=== PATIENT | female | born 1975 | race Caucasian/White ===

== ENCOUNTER 2023-10-24 08:08 | Emergency (ER) | payer OTHER, SELFPAY ==
[2023-10-24 08:13] VITALS: BP 155/89
[2023-10-24 08:35] VITALS: BMI 53.3
[2023-10-24 08:56] LABS: % Basophils 0.7 % (0-2); % Eosinophils 1.2 % (0-6); % Immature Granulocytes 0.6 % (0-0.5); % Lymphocytes 22.2 % (20.5-51.1); % Neutrophils 69.3 % (42.2-75.2); Absolute Basophils 0.1 10^3/uL (0-0.2); Absolute Eosinophils 0.1 10^3/uL (0-0.7); Absolute Immature Granulocytes 0.1 10^3/uL (0-0.05); Absolute Monocytes 0.5 10^3/uL (0.1-0.6); Absolute Neutrophils 6.3 10^3/uL (1.4-6.5); Hemoglobin 9.9 g/dL (12.0-16.0); Mean Corpuscular Hgb 27.3 pg (27.0-31.0); Mean Corpuscular Volume 82.6 fL (81.0-99.0); Mean Platelet Volume 10.8 fL (7.4-10.4); Nucleated Red Blood Cells % 0 %; Platelet Count 288 10^3/uL (130-400); Red Blood Cell Count 3.63 10^6/uL (4.20-5.40); Red Cell Dist. Width 17.6 % (11.5-14.5)
[2023-10-24 09:07] LABS: ALT (SGPT) 15 U/L (0-35); AST (SGOT) 15 U/L (14-36); Albumin 3.7 g/dl (3.5-5.0); Alkaline Phosphatase 87 U/L (38-126); Blood Urea Nitrogen 9 mg/dl (7-17); Calcium 8.6 mg/dl (8.4-10.2); Carbon Dioxide 25 mmol/L (22-30); Chloride 104 mmol/L (98-107); Estimated Creatinine Clearance > 125 ml/min; Glucose 100 mg/dl (70-99); HCG, Serum Qualitative Screen Negative; Potassium 3.6 mmol/L (3.5-5.1); Sodium 135 mmol/L (135-145); Total Bilirubin 0.3 mg/dl (0.2-1.3); Total Protein 6.4 g/dl (6.3-8.2); eGFR > 60.00
[2023-10-24 09:14] VITALS: BP 126/77
[2023-10-24 10:04] VITALS: BP 115/60
--- NOTE | 2023-10-24 10:08 | ED.GENMED ---
History of Present Illness
General
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
Source: patient and spouse
Time Seen by Provider: 10/24/23 08:26
Travel History
Have you had any contact with someone who has COVID-19?: No
Do you have any symptoms of coronavirus? Fever > 100 degrees, chills, cough, shortness of breath, sore throat, loss of taste or smell, muscle aches, or headache?: No
History of Present Illness
History of Present Illness:
48-year-old female with a hx of clotting disorder and pulmonary embolism who is anticoagulated and presents after she woke up there was blood around her mouth and her arms. She also states that she is on her period has been having heavy bleeding
which she typically does have and is scheduled for hysterectomy in the next 3 weeks. The patient states that she was not sure if it was just from her vaginal bleeding as white blood was on her arms. She then brushed her teeth and noticed some
blood from the gums. She also coughed and noticed some blood as well. She has had no further cough. No fevers. Now feels relatively well otherwise. A little bit of lightheadedness which has come in the past. She had labs to get tomorrow for
pre-op. She is to have her procedure done here at [facility] but has been following a little bit at [facility] as well. she reports large fibroids.
Past History
Past History
ED Past Medical History: Asthma and Other (Prothrombin gene mutation (clotting disorder), uterine fibroids, pulmonary embolism, DVT, obstructive sleep apnea)
Phy Exam
Physical Exam
Physical Exam:
CONSTITUTIONAL Patient alert and oriented to person, place and time. Well-appearing. Vital signs reviewed.
HEAD atraumatic, normocephalic.
EYES eyelids normal to inspection, Extraocular muscles intact, Conjunctiva normal, Sclera normal.
ENT small gingival lesion on the left upper gingiva. She does have some missing teeth bilaterally and in the upper dentition and lower dentition. There is no obvious bleeding from the dental region. No noted epistaxis
NECK normal range of motion, Trachea midline, no jugular venous distention.
RESPIRATORY CHEST No respiratory distress noted, Chest expansion equal, Bilateral breath sounds clear.
CARDIOVASCULAR regular rate and rhythm, Heart sounds normal.
ABDOMEN abdomen nontender, Bowel sounds normal. No distention.
UPPER EXTREMITY range of motion normal, Motor strength normal, no cyanosis, no edema.
LOWER EXTREMITY range of motion normal, Motor strength normal, no cyanosis, no edema.
NEURO Speech normal, No focal motor deficits, [place] coma scale 15, Memory normal, Cranial Nerves intact to screening exam.
SKIN skin warm, dry, and normal in color.
PSYCHIATRIC patient oriented to person place and time, Normal affect.
Course
Orders/Labs/Results
Orders:
Orders
10/24/23 08:36
Test Result ONCE
10/24/23 08:43
Type And Crossmatch Urgent
CMP [Comprehensive Metabolic Panel] Urgent
Complete Blood Count/With Diff Urgent
FSH Urgent
Comment: ADD ON
Ferritin Urgent
Comment: ADD ON
HCG, Serum Qualitative Screen Urgent
Iron Urgent
Comment: ADD ON
TSH Reflex To Free T4 Urgent
Comment: ADD ON
Total Iron Binding Urgent
Comment: ADD ON
10/24/23 09:04
CR Chest - 2 Views Urgent
Comment:
Reason For Exam: hemoptysis
10/24/23 10:14
PTT Urgent
Prothrombin Time Urgent
10/24/23 10:15
Add On- LAB Urgent
Tests Added?: Ca-125, TSH with reflex to T4
Add On- LAB Urgent
Tests Added?: FSH
Add On- LAB Urgent
Tests Added?: Fe, TIBC, Ferritin
Abnormal Lab Results
10/24/23
08:43
RBC 3.63 L 10^6/uL
(4.20-5.40)
Hgb 9.9 L g/dL
(12.0-16.0)
Hct 30.0 L %
(37.0-47.0)
RDW 17.6 H %
(11.5-14.5)
MPV 10.8 H fL
(7.4-10.4)
Abs Immat Gran (auto) 0.1 H 10^3/uL
(0-0.05)
Immature Gran % 0.6 H %
(0-0.5)
Glucose 100 H mg/dl
(70-99)
10/24/23 08:43
10/24/23 08:43
Vital Signs
Initial and Last Documented VS:
Initial Vital Signs
Temp Pulse Resp BP Pulse Ox
97.6 F 93 18 155/89 95
10/24/23 08:13 10/24/23 08:13 10/24/23 08:13 10/24/23 08:13 10/24/23 08:13
Last Documented Vital Signs
Temp Pulse Resp BP Pulse Ox
97.6 F 84 15 115/60 95
10/24/23 08:13 10/24/23 10:04 10/24/23 10:04 10/24/23 10:04 10/24/23 08:13
MDM/Problems Addressed
MDM/Problems Addressed:
Dysfunctional uterine bleeding, gingival bleeding
*Radiology
Radiology exam reviewed: radiology read reviewed and all reviewed NAD by ED Provider
*Pulse Oximetry
Patient hypoxic: no
*Critical Care Note
Total Time (30-74mins, 75-104mins- exclusive of procedures): Not Applicable
Data Reviewed
Source: patient and spouse
Further Testing Considered But Not Given:
Consider pelvic ultrasound the patient history of persistent bleeding and fibroids. Plan for surgery
Patient Management
Escalation/DeEscalation of care consider admission/obs:
In no way suspect that this was hemoptysis as the patient likely would have woken up coughing or short of breath. She has no respiratory symptoms at all. Suspect ENT course. She has no bleeding here in the emergency department. Okay for
discharge and outpatient follow-up with her specialist. Patient does note that she took ibuprofen last night. Did recommend that take ibuprofen with Eliquis
ED Attending Note
-
Portions of this chart may have been created with voice recognition software.� Occasional wrong word or��sound alike� substitutions may have occurred due to the inherent limitations of voice recognition software.
Discharge Plan
Departure
Patient Disposition: Home (Routine Discharge)
Date of Disposition: 10/24/23
Time of Disposition: 10:20
Patient with high blood pressure during this ER visit?: No
Discharge Problem:
Dysfunctional uterine bleeding
Instructions: Heavy Periods (DC)
Prescriptions:
No Action
torsemide 5 mg Tablet
5 mg PO PRN PRN (Reason: edema)
Rx Instructions:
5-10 mg
pantoprazole 40 mg Tablet,Delayed Release (Dr/Ec)
40 mg PO DAILY
diphenhydramine HCl [Benadryl] 25 mg Capsule
25 mg PO HS PRN (Reason: sleep)
Xarelto 20 mg Tablet
20 mg PO QPM
Iron Infusions
1 unit IV PRN PRN (Reason: .as needed)
Referrals:
Jorje Mosqueda MD [Family Provider] -
Activity Restrictions/Additional Instructions:
Please follow-up as planned with your specialist. Return immediately for lightheadedness, passing out episode, shortness of breath, chest pain or any other concerns
Interventions
Interventions:
*Risk Screen - Suicide Last Done: 10/24/23 08:30
*General Assessment Last Done: 10/24/23 08:30
*Neglect/Abuse Screening Last Done: 10/24/23 08:30
ED- Fall Risk Assessment Last Done: 10/24/23 09:12
*ED COVID-19 Vaccine History Last Done: 10/24/23 08:15
ED-Female Genitourinary Assessment Last Done: 10/24/23 08:45
Discharge Date and Time
Print Language: TAJIK
[2023-10-24 10:38] LABS: INR 1.78; PT 20.6 Sec (11.4-14.6)
[2023-10-24 10:39] LABS: APTT 39.3 Sec (23.4-35.0)
[2023-10-24 10:55] LABS: Iron 75 ug/dl (37-170)
[2023-10-24 11:05] LABS: Percent Saturation 26 % (20-50); Total Iron Binding Capacity 279 ug/dl (265-497)
[2023-10-24 11:37] LABS: FSH 8.1 mIU/ml
[2023-10-24 11:51] LABS: TSH Reflex To Free T4 2.69 uIU/ml (0.47-4.68)
[2023-10-24 11:57] LABS: Ferritin 73.2 ng/ml (6.24-137)
[2023-10-24 18:11] LABS: CA 125 101 U/mL (0-35)
== END 2023-10-24 10:55 | disposition home or self-care (01) ==
LOC: EMR 08:08
PROVIDERS: EMERGENCY PHYSICIAN Emergency Medicine; FAMILY PHYSICIAN Family Medicine
DX: N93.8 Other specified abnormal uterine and vaginal bleeding (principal); R42 Dizziness and giddiness; D25.9 Leiomyoma of uterus, unspecified; D68.52 Prothrombin gene mutation; G47.33 Obstructive sleep apnea (adult) (pediatric); J45.909 Unspecified asthma, uncomplicated; Z88.2 Allergy status to sulfonamides
CPT/HCPCS: 99283; 71046; 80053; 82728; 83001; 83540; 83550; 84443; 84703; 85025; 85610; 85730; 86304; 86850; 86900; 86901

== ENCOUNTER 2023-10-28 17:38 | Inpatient (IN) | payer OTHER, SELFPAY ==
[2023-10-28] VITALS (15 sets, daily range): BP systolic 112–146; BP diastolic 56–116; BMI 53.2; BMI 51.2
[2023-10-28 15:39] LABS: % Basophils 0.4 % (0-2); % Eosinophils 1.2 % (0-6); % Immature Granulocytes 0.7 % (0-0.5); % Lymphocytes 18.3 % (20.5-51.1); % Neutrophils 74.4 % (42.2-75.2); Absolute Eosinophils 0.1 10^3/uL (0-0.7); Absolute Immature Granulocytes 0.1 10^3/uL (0-0.05); Absolute Lymphocytes 1.9 10^3/uL (1.2-3.4); Absolute Monocytes 0.5 10^3/uL (0.1-0.6); Absolute Neutrophils 7.7 10^3/uL (1.4-6.5); Hematocrit 28.7 % (37.0-47.0); Hemoglobin 9.1 g/dL (12.0-16.0); Mean Corp Hgb Conc. 31.7 g/dL (33.0-37.0); Mean Corpuscular Hgb 27.9 pg (27.0-31.0); Mean Platelet Volume 10.6 fL (7.4-10.4); Nucleated Red Blood Cells % 0 %; Platelet Count 346 10^3/uL (130-400); Red Blood Cell Count 3.26 10^6/uL (4.20-5.40); Red Cell Dist. Width 18.8 % (11.5-14.5); White Blood Cell Count 10.4 10^3/uL (4.8-10.8)
[2023-10-28] MEDS: ZOFRAN 4 MG IV (15:49)
[2023-10-28] MEDS: MORPHINE SULFATE 4 MG IV (15:49)
[2023-10-28 15:52] LABS: ALT (SGPT) 13 U/L (0-35); AST (SGOT) 17 U/L (14-36); Albumin 3.9 g/dl (3.5-5.0); Alkaline Phosphatase 94 U/L (38-126); Blood Urea Nitrogen 10 mg/dl (7-17); Calcium 8.8 mg/dl (8.4-10.2); Carbon Dioxide 24 mmol/L (22-30); Chloride 104 mmol/L (98-107); Estimated Creatinine Clearance > 125 ml/min; Glucose 111 mg/dl (70-99); Sodium 138 mmol/L (135-145); Total Bilirubin 0.4 mg/dl (0.2-1.3); Total Protein 6.7 g/dl (6.3-8.2); eGFR > 60.00
[2023-10-28 15:54] LABS: INR 1.23; PT 15.3 Sec (11.4-14.6)
[2023-10-28 15:55] LABS: APTT 33.2 Sec (23.4-35.0)
[2023-10-28] MEDS: NSS 1000 IV (15:55)
--- NOTE | 2023-10-28 16:27 | ED.GENMED ---
History of Present Illness
General
Chief Complaint: Vaginal Bleeding
Source: patient, records and spouse
Exam Limitations: none
Time Seen by Provider: 10/28/23 15:33
Nursing documentation reviewed up to this point in time: agreed with
Travel History
Have you had any contact with someone who has COVID-19?: No
Do you have any symptoms of coronavirus? Fever > 100 degrees, chills, cough, shortness of breath, sore throat, loss of taste or smell, muscle aches, or headache?: No
History of Present Illness
History of Present Illness:
48-year-old female presents emergency room complaining of pelvic pain and vaginal bleeding. She was here Friday for the same. She has a hysterectomy scheduled for early November. She takes Xarelto for a prothrombin gene. She is scheduled with
[facility].
Past History
Past History
ED Past Medical History: Asthma and Other (Prothrombin gene mutation (clotting disorder), uterine fibroids, pulmonary embolism, DVT, obstructive sleep apnea)
ED Past Surgical History: Other (wisdom teeth, cataracts)
Social History
Tobacco: Non-smoker
Alcohol: None
Drug: None
Personal:
Review of Systems
Review of Systems
Allergies reviewed?: Yes
All Other Systems: Not applicable
Constitutional: Reports no symptoms
EENT: Reports no symptoms
Respiratory: Reports no symptoms
Cardiac: Reports no symptoms
ABD/GI: Reports no symptoms
: Reports bleeding
Musculoskeletal: Reports no symptoms
Skin: Reports no symptoms
Neurological: Reports no symptoms
Endocrine: Reports no symptoms
Hematologic/Lymphatic: Reports no symptoms
Psychiatric: Reports no symptoms
Phy Exam
Physical Exam
Physical Exam:
Physical Exam
General: appears uncomfortable
Neck: supple. no meningeal signs. normal posterior pharynx
Heart: s1/s2 regular rate and rhythm, no murmur. equal radial
pulses.
HEENT: Pupils equal round reactive to light, EOMI
Lungs: no acute respiratory distress. clear bilaterally
Abdomen: normal bowel sounds. not tender. no CVAT
Neuro: alert and oriented. no focal neurological deficits cranial nerves II through XII intact
Skin: no rash
Psychiatric: well kept. interactive and cooperative
Extremities: no edema. no calf tenderness. negative homans. good distal pulses
Genitourinary Exam Female
Exam Female: adnexal tenderness (left)
Vaginal Exam: blood
Vaginal Bleeding: clots and moderate
Visual exam of cervix: os closed
Uterus: normal size
Course
Orders/Labs/Results
Orders:
Orders
10/28/23 Dinner
Regular
At Your Request: Full Participation
10/28/23 15:26
Type And Crossmatch Urgent
Complete Blood Count/With Diff Urgent
Comprehensive Metabolic Panel Urgent
PTT Urgent
Prothrombin Time Urgent
10/28/23 15:47
Morphine Sulfate 4 mg IV NOW STA
Ondansetron Injectable [Zofran] 4 mg IV NOW STA
10/28/23 15:48
0.9% Sodium Chloride 1000 ml [Nss] 1,000 ml IV BOLUS
Morphine Sulfate 4 mg .ROUTE .STK-MED ONE
Ondansetron Injectable [Zofran] 4 mg .ROUTE .STK-MED ONE
Pelvis & Transvaginal US [US Pelvis W Transvag Combined] Urgent
Comment:
Reason For Exam: left side pelvic pain
10/28/23 17:23
Admit/Transfer Patient As Directed
Co-Sign Provider:
Level of Care: Inpatient admission
Assign to:: IMU- Intermediate Care
Physician / Group: marina
Diagnosis: mehorragia
Reason for Hospitalization: menorrhagia
Expected length of stay greater than two midnights?: Yes
ELOS- Estimated Length of Stay in days: 2
I certify the patient meets the requirements for IP care: Yes
10/28/23 17:24
Code Status As Directed
Resuscitation Status: Full Code
10/28/23 17:25
Blood Bank Products [* Blood Bank Products] Routine
Blood Bank Products: *Packed RBC Leuko(PRBC's)
Quantity: 1
Transfuse Today: Yes
Reason: Bleeding
Abnormal Lab Results
10/28/23
15:26
RBC 3.26 L 10^6/uL
(4.20-5.40)
Hgb 9.1 L g/dL
(12.0-16.0)
Hct 28.7 L %
(37.0-47.0)
MCHC 31.7 L g/dL
(33.0-37.0)
RDW 18.8 H %
(11.5-14.5)
MPV 10.6 H fL
(7.4-10.4)
Abs Immat Gran (auto) 0.1 H 10^3/uL
(0-0.05)
Absolute Neuts (auto) 7.7 H 10^3/uL
(1.4-6.5)
Immature Gran % 0.7 H %
(0-0.5)
Lymphocytes % 18.3 L %
(20.5-51.1)
PT 15.3 H Sec
(11.4-14.6)
Glucose 111 H mg/dl
(70-99)
Crossmatch IS Only See Detail
10/28/23 15:26
10/28/23 15:26
Vital Signs
Initial and Last Documented VS:
Initial Vital Signs
Pulse Ox
99
10/28/23 15:19
Last Documented Vital Signs
Temp Pulse Resp BP Pulse Ox
98.0 F 78 16 114/63 96
10/28/23 18:19 10/28/23 19:00 10/28/23 19:00 10/28/23 19:00 10/28/23 18:45
MDM/Problems Addressed
Differential Diagnosis Includes:
Blood loss anemia, vaginal bleeding
MDM/Problems Addressed:
48-year-old female with anemia, vaginal bleeding. Patient on Xarelto for prothrombin gene mutation and history of pulmonary embolism. Discussed with Dr. Deluna,, TOOL TECHNICIAN oncology, who recommends admission to hospitalist, await Xarelto washout and
embolization, IVC filter.
Chronic conditions affecting care: Other (Prothrombin gene mutation)
Acute Exacerbation and/or Progression of Chronic Illness: Other (Chronic anticoagulation, fibroids)
*Radiology
Radiology exam reviewed: radiology read reviewed (Ultrasound shows complex right ovarian lesion, possibly hemorrhagic cyst or endometrioma, bulky fibroid uterus)
*Pulse Oximetry
Patient hypoxic: no
*EKG
Interpreted by ED Provider?: NA
*Networks Software Consultant Interpretation
Rate: Networks Software Consultant- N/A
*Critical Care Note
Total Time (30-74mins, 75-104mins- exclusive of procedures): Not Applicable
Patient Management
Social determinants of health affecting care: Living situation
Discussion with other providers: Hospitalist and Property Assessment Monitor (Gynecology oncology Dr. Deluna)
ED Attending Note
-
Portions of this chart may have been created with voice recognition software.� Occasional wrong word or��sound alike� substitutions may have occurred due to the inherent limitations of voice recognition software.
Discharge Plan
Departure
Patient Disposition: Admit
Date of Disposition: 10/28/23
Time of Disposition: 16:51
Admit to: Telemetry
Presentation/result/management discussed w/ accepting MD/DO: Hospitalist
Patient with high blood pressure during this ER visit?: Yes
Condition: Fair
Discharge Problem:
Abnormal vaginal bleeding, Prothrombin gene mutation, Chronic anticoagulation, Hemorrhagic cyst of right ovary
Interventions
Interventions:
*Risk Screen - Suicide Last Done: 10/28/23 15:22
*General Assessment Last Done: 10/28/23 15:21
*Neglect/Abuse Screening Last Done: 10/28/23 15:22
ED- Fall Risk Assessment Last Done: 10/28/23 15:43
*ED COVID-19 Vaccine History Last Done: 10/28/23 15:21
ED-Female Genitourinary Assessment Last Done: 10/28/23 15:43
--- NOTE | 2023-10-28 17:28 | HPS.HSE ---
Family Physician
-
Family Physician: Jorje Mosqueda MD
Chief Complaint
-
vaginal bleeding
History of Present Illness
48-year-old female with past medical history of prothrombin gene mutation on Xarelto, uterine fibroids, ruptured ovarian cysts, asthma, undiagnosed obstructive sleep apnea, pulmonary embolism, DVT, presenting with severe abdominal pain today and
syncopal episode later.
Patient has a history of uterine fibroids with heavy menstrual bleeding for many years. She last had blood transfusion in April and iron transfusion in September of this year. Her baseline hemoglobin is around 10. She has been seeing Dr. Deluna of
[facility] placement worker onc with plan for IVC filter later this month and hysterectomy in November.
Patient has been having persistent vaginal bleeding with clots over the past few weeks.. Her periods been irregular. She was also having bleeding from her gums and came to the emergency room here 4 days ago and was discharged. She no longer has
bleeding from her gums.
She has chronic abdominal pain due to fibroids but today she had severe abdominal pain across her belly worse on the left and passed out afterwards. She denies any dizziness, chest pain or shortness of breath at this time. She denies nausea or
vomiting or diarrhea. She denies fevers or chills.
She last took Xarelto last night.
Medical History
Past Medical History
Past Medical History: Reports Other (prothrombin gene mutation on Xarelto, uterine fibroids, ruptured ovarian cysts, asthma, undiagnosed obstructive sleep apnea, pulmonary embolism, DVT, )
Past Surgical History: Reports Other (wisdom teeth, cataracts)
Social History
Tobacco: Non-smoker
Alcohol: None
Drug: None
Family History
Family History: Other (Father with prothrombin gene mutation )
Allergies / Home Medications
Allergies reflects when Allergies were last updated in GitHub.
Home Medications with original date entered in GitHub
Allergy/Medication List:
Allergies
Allergy/AdvReac Type Severity Reaction Status Date / Time
Sulfa (Sulfonamide Allergy Intermediate Hives Verified 10/24/23 08:13
Antibiotics)
Home Medications
diphenhydramine HCl 25 mg capsule (Benadryl) 50 mg PO HS sleep 10/24/23
pantoprazole 40 mg tablet,delayed release 40 mg PO DAILY 10/24/23
rivaroxaban 20 mg tablet (Xarelto) 20 mg PO QPM 10/24/23
ibuprofen 200 mg tablet (Advil) 200 mg PO Q6HPRN PRN mild pain 10/28/23
tramadol 50 mg tablet 50 mg PO BIDPRN PRN severe pain 10/28/23
Review of Systems
-
History Source: Patient
A 12 point ROS was completed and negative except as noted: Yes
Constitutional: Reports No Symptoms
EENT: Reports No Symptoms
Respiratory: Reports No Symptoms
Cardiac: Reports No Symptoms
Abdomen/GI: Reports See HPI
: Reports No Symptoms
Musculoskeletal: Reports No Symptoms
Skin: Reports No Symptoms
Neurological: Reports No Symptoms
Endocrine: Reports No Symptoms
Hematologic/Lymphatic: Reports No Symptoms
Psych: Reports No Symptoms
Physical Exam
Vital Signs
Vital Signs
Temp Pulse Resp BP Pulse Ox
98.3 F 70 14 132/78 98
10/28/23 15:21 10/28/23 17:15 10/28/23 17:15 10/28/23 17:00 10/28/23 17:15
Physical Exam
General: Well Developed, Well Nourished and No Apparent Distress
HEENT: NormoCephalic, Moist mucous membranes and Atraumatic
Respiratory: Clear
Cardiac: S1/S2 and Regular Rhythm; No Murmur or Rub
GI: Soft, Non Distended, Normal Bowel Sounds and Tender; No Organomegaly
Rectal: Deferred by Provider
Musculoskeletal: No Clubbing, No Cyanosis and No Edema
Skin: No Rash
Neuro: Nonfocal/grossly intact
Laboratory Results
-
10/28/23 15:26
10/28/23 15:
Laboratory Results
PT 15.3 Sec (11.4-14.6) H 10/28/23 15:
INR 1.23 10/28/23 15:
APTT 33.2 Sec (23.4-35.0) 10/28/23 15:
Total Bilirubin 0.4 mg/dl (0.2-1.3) 10/28/23 15:
AST 17 U/L (14-36) 10/28/23 15:
ALT 13 U/L (0-35) 10/28/23 15:
Alkaline Phosphatase 94 U/L (38-126) 10/28/23 15:
Data Reviewed
-
Lab Data: Labs Reviewed by me
Old Records: Reviewed
Impression/Plan
-
IMPRESSION:
PLAN:
# Menorrhagia/abdominal pain secondary to uterine fibroids
# History of ruptured ovarian cyst
-Hemoglobin of 9.1
-Blood consent signed, type and screen, 1 unit of blood
-Check hemoglobin q8 hours
-Hold Xarelto, ibuprofen
-Customer Operations Associate onc recommended waiting for Xarelto washout and then consulting IR for IVC filter, uterine embolization and eventual hysterectomy
-Pelvic ultrasound pending to evaluate for abdominal pain
-Morphine for pain
# Syncopal episode secondary to blood loss anemia/vagal episode from pain
# Recent gingival bleeding
-Now resolvedin
# Chronic blood loss anemia
-Hemoglobin 9.9 four days ago, currently 9.1
-1 unit of blood
-Check iron studies
Prothrombin gene mutation
History of PE/DVT
-Holding Xarelto
-Plan for IVC filter
Asthma
Undiagnosed obstructive sleep apnea
GERD
-Continue Protonix
Full code
DVT prophylaxis�SCDs
Regular diet
--- NOTE | 2023-10-28 20:12 | PTCARENOTE ---
Rec'd patient from ED. Patient alert and oriented. VSS. Ambulatory to bathroom with standby supervision. Denies dizziness. Suzette care performed. 1 unit of PRBCs transfused. Call camacho within reach. No complaints.
[2023-10-28] MEDS: BENADRYL 50 MG PO (22:25)
--- NOTE | 2023-10-28 22:42 | W.CON.GYNONC ---
Addendum entered and electronically signed by Boston Deluna MD 10/28/23 23:06:
48�year�old�G1�P0010�woman�with�prior�history�of�anemia�gastroesophageal�reflux�disease,�acid�reflux,�blood�clotting�disorder
ovarian�cyst�fibroid�prothrombin�gene�mutation�and�prior�history�of�pulmonary�embolism.�Patient�has�menorrhagia�with�irregular
cycles,�she�also�has�left�lower�quadrant�pain.�Patient�has�a�very�long�and�complicated�story,�she�has�had�heavy�bleeding�for�some
time,�previous�gynecologic�care�was�rendered�by�Dr.�Lea�Boileau.�An�endometrial�biopsy�in�March�2022�by�her�was�negative�but
she�had�a�bad�experience�with�communication�with�her�and�eventually�decided�to�switch�providers.�In�Radha�2022�patient�was
hospitalized�with�DVT�of�right�leg�as�well�as�bilateral�pulmonary�embolisms.�Workup�revealed�prothrombin�gene�mutation.�She�has
been�initially�on�Eliquis�but�subsequently�on�Xarelto�because�of�insurance�approval�and�coverage.�She�did�have�a�recurrent�bout�of DVT�in�Reynold�2022�with�her�fourth�dose�of�COVID�vaccination.
Patient�has�had�recent�bleeding�that�has�been�very�heavy�and�erratic,�typically�she�bleeds�for�3�days�heavy�enough�to�require
tampon,�pad�as�well�as�depends�diapers�the�duration�of�the�bleeding�is�about�7�to�10�days.�She�has�had�blood�transfusion�on�1 occasion.�She�had�consistent�pain�in�late�October�and�was�seen�by�her�primary�care�physician�Dr.�Jorje�Mosqueda.�In�October
2022�she�had�a�CT�scan�at�[facility]. CT�abdomen�and�pelvis�October�31,�2022�shows�lung�bases�to�be�clear,�liver�is�intact,�spleen�is�unremarkable�pancreas�adrenal
glands�there�is�no�evidence�of�adenopathy�or�ascites.�Right�ovarian�cystic�lesion�is�5�x�5.8�cm,�the�uterus�measures�15�x�15�x�9�cm with�multiple�fibroids.
She�also�experienced�vertigo�and�she�underwent�vestibular�therapy,�and�later�on�it�was�attributed�to�anemia.�Bleeding�was�attributed
to�large�fibroids,�the�patient�changed�her�power electronics engineer�and�saw�Dr.�Rodriguez�Fitzgerald.�A�repeat�endometrial�biopsy�was�then�done.
She�had�iron�infusion�in�Ani�with�Dr.�Louie�Ani�3�and�Ani�22.�At�the�request�of�new�power electronics engineer�MRI�of�the�pelvis was�done.
MRI�of�the�pelvis�dated�Ani��shows�markedly�enlarged�and�lobular�you�uterus�with�numerous�myoma,�largest�myoma�is
transmural�7.6�x�8.6�cm,�and�left�posterior�subserosal�exophytic�myoma�with�central�hyalinization�and�7.6�x�8.6�cm.�Left�lateral
corpus�centrally�transmural�leiomyoma�6.8�cm,�there�is�normal�thickness�of�endometrium.�Uterus�overall�measures�18�x�13.9�x�8.9 cm.�Left�ovary�has�small�follicles�but�overall�contiguous�with�the�left�uterus,�largest�follicle�is�17�mm,
Pap�smear�Reynold��is�negative�for�intraepithelial�lesion�or�malignancy. Recent�endometrial�biopsy�Ani��shows�early�secretory�endometrium,�no�evidence�of�hyperplasia�atypia�or�malignancy.
Patient�has�had�10�day�menstrual�cycles�in�early�February�and�again�in�a�early�March. Past�medical�history�includes�history�of�DVT,�pulmonary�embolism,�prothrombin�gene�mutation,�GERD�and�migraines
Medications�include�Ativan,�Benadryl,�pantoprazole,�torsemide,�Xarelto, Family�history�significant�for�father�with�bladder�cancer,�cardiovascular�disease�and�hypertension,�mother�with�heart�disease, maternal�grandmother�diagnosed�with�heart�disease.
Past�surgical�history�significant�for�cataract�surgery�in�2014�and�2015�as�well�as�wisdom�tooth�extraction Social�history�significant�for��x�27�years,�denies�tobacco�drug�use�and�marijuana.�Drinks�alcohol�socially.�She�used�to�work
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
Original Note:
Consultation
-
Date/Time Consultation Requested: 10/28/23
Performing Provider: Boston Deluna
Reason for Consultation: Vaginal bleeding, syncope
Chief Complaint
-
patient is brought to ER 4 days after being here before with pain, vaginal bleeding, having passed out at home, came in by ambulance. I met her once before in office 09/24/23. see below for her detailed history.
History of Present Illness
N/A
Medical History
Past Medical History
Past Medical History: Reports Other (48�year�old woman with prior history of anemia gastroesophageal reflux disease, acid reflux, blood clotting disorder ovarian cyst fibroid prothrombin gene mutation and prior history of pulmonary
embolism. Patient has menorrhagia with irregular cycles, she also has left lower quadrant pain. )
Allergies
Allergies reflect when allergies were last updated in [facility].
Sulfa (Sulfonamide Antibiotics) Allergy (Intermediate, Verified 10/24/23 08:13)
Hives
Physical Exam
Vital Signs / I&O
Vitals
Temp Pulse Resp BP Pulse Ox
98.0 F 69 12 116/67 90
10/28/23 20:34 10/28/23 22:00 10/28/23 22:00 10/28/23 22:00 10/28/23 22:00
I&O
10/26/23 10/27/23 10/28/23 10/29/23
06:59 06:59 06:59 06:59
Intake Total 250 / 250
Balance 250 / 250
Results
-
10/28/23 15:26
10/28/23 15:26
Data Reviewed
-
Diagnostic Radiology: Image personally visualized and interpreted, Discussed with Patient and Discussed with Family
Ultrasound: Image personally visualized and interpreted
Lab Data: Labs Reviewed and Discussed with Family
Old Records: Reviewed
Impression / Plan
-
48�year�old�woman�with�multiple�large�leiomyoma�creating�a�enlarged�uterus�causing�abnormal�bleeding,�endometrial biopsy�so�far�does�not�show�any�evidence�of�malignancy,�the�bleeding�is�exacerbated�because�patient�is�chronically�on�Xarelto�due
to�history�of�DVT�and�pulmonary�embolism�as�well�as�genetic�mutation�for�venous�thromboembolic�disease.�
My�recommendation�is surgery,�medical�management�is�extremely�difficult�and�is�likely�not�successful.
I recommend admission to hospitalist team
Hold Xaralto
Serial Hgb level, suspect she is hemoconcentrated
she is hemodynamically atable
Transfuse to keep Hgb above 8
I would get CT angiogram abd pelvis
I recommend IR consult for uterine a. embolization
I also recommend IR for retrievable IVC filter
If possible I would like to stabilize her and then do surgery as planned for November 17. otherwise we may have to do earlier.
Patient is known to [facility] (Dr Joseph) , please consult and let them follow her during hospital stay
Etiology of syncope unclear, I would also recommend cardiology eval before surgery.
Boston Deluna MD
[2023-10-28 23:53] LABS: Hemoglobin 8.7 g/dL (12.0-16.0)
[2023-10-29] VITALS (10 sets, daily range): BP systolic 71–125; BP diastolic 50–83; BMI 51.3
[2023-10-29 00:14] LABS: Iron 49 ug/dl (37-170)
[2023-10-29 00:23] LABS: Percent Saturation 17 % (20-50); Total Iron Binding Capacity 277 ug/dl (265-497)
[2023-10-29 00:50] LABS: Ferritin 43.6 ng/ml (6.24-137)
--- NOTE | 2023-10-29 03:18 | PTCARENOTE ---
Patient's pulse ox frequently dropping, as low as 70%, while asleep. Patient states she most likely has undiagnosed sleep apnea. 2L nc applied.
--- NOTE | 2023-10-29 05:27 | DOWNTIME ---
There was a [employer] Client Finish Inspector Downtime on 10/28/2023 from 0100 to 10/29/2023 at 0300. Downtime documentation of patient's care, including medication administrations, has been reconciled in the electronic record per guidelines. Refer to the
patient's paper chart under the miscellaneous tab to see printed paper medication records and downtime forms.
[2023-10-29 06:13] LABS: % Basophils 0.5 % (0-2); % Eosinophils 2.4 % (0-6); % Immature Granulocytes 0.7 % (0-0.5); % Monocytes 6.6 % (1.7-9.3); % Neutrophils 58.8 % (42.2-75.2); Absolute Eosinophils 0.2 10^3/uL (0-0.7); Absolute Immature Granulocytes 0.1 10^3/uL (0-0.05); Absolute Lymphocytes 2.3 10^3/uL (1.2-3.4); Absolute Monocytes 0.5 10^3/uL (0.1-0.6); Absolute Neutrophils 4.4 10^3/uL (1.4-6.5); Hematocrit 27.9 % (37.0-47.0); Hemoglobin 9.1 g/dL (12.0-16.0); Mean Corp Hgb Conc. 32.6 g/dL (33.0-37.0); Mean Corpuscular Hgb 28.1 pg (27.0-31.0); Mean Corpuscular Volume 86.1 fL (81.0-99.0); Mean Platelet Volume 10.5 fL (7.4-10.4); Nucleated Red Blood Cells % 0 %; Platelet Count 288 10^3/uL (130-400); Red Blood Cell Count 3.24 10^6/uL (4.20-5.40); White Blood Cell Count 7.4 10^3/uL (4.8-10.8)
[2023-10-29 06:38] LABS: ALT (SGPT) 11 U/L (0-35); AST (SGOT) 18 U/L (14-36); Albumin 3.2 g/dl (3.5-5.0); Alkaline Phosphatase 74 U/L (38-126); Blood Urea Nitrogen 10 mg/dl (7-17); Calcium 8.2 mg/dl (8.4-10.2); Carbon Dioxide 25 mmol/L (22-30); Chloride 106 mmol/L (98-107); Estimated Creatinine Clearance > 125 ml/min; Glucose 90 mg/dl (70-99); Potassium 4.4 mmol/L (3.5-5.1); Sodium 136 mmol/L (135-145); Total Bilirubin 0.4 mg/dl (0.2-1.3); Total Protein 5.7 g/dl (6.3-8.2); eGFR > 60.00
--- NOTE | 2023-10-29 07:35 | PTCARENOTE ---
Received pt sitting up in bed with bilateral knee-hi scd's on. She is very pleasant. Denies any worsening pain or discomfort. Left FA#20g protective catheter flushed and patent with blood return. Weak pedal pulses. Pt reports L/ edema although
weight is unchanged from admission. She stated her charge histotechnologist prescribed Torsemide for fluid retention however, this is not on her current medication summary. Lungs CTA posteriorly, breath sounds diminished ini the bases. Room air saturation 96%.
She has adult incontinent pants on with a sanitary napkin. She was informed of the plan of care. She verbalized her understanding. Safe environment maintained.
[2023-10-29] MEDS: PROTONIX 40 MG PO (08:13)
--- NOTE | 2023-10-29 08:33 | W.PN.GYNONC ---
Today's Communication
-
awaiting results of CT Scan consider IR consult for filter and uterine artery embolization
Impression / Plan
-
48�year�old�woman�with�multiple�large�leiomyoma�creating�a�enlarged�uterus�causing�abnormal�bleeding,�endometrial biopsy�so�far�does�not�show�any�evidence�of�malignancy,�the�bleeding�is�exacerbated�because�patient�is�chronically�on�Xarelto�due
to�history�of�DVT�and�pulmonary�embolism�as�well�as�genetic�mutation�for�venous�thromboembolic�disease.�
My�recommendation�is surgery,�medical�management�is�extremely�difficult�and�is�likely�not�successful.
I recommend admission to hospitalist team
Hold Xaralto
Serial Hgb level, suspect she is hemoconcentrated
she is hemodynamically atable
Transfuse to keep Hgb above [address] angiogram abd pelvis
I recommend IR consult for uterine a. embolization
I also recommend IR for retrievable IVC filter
If possible I would like to stabilize her and then do surgery as planned for November 17. otherwise we may have to do earlier.
Patient is known to [facility] (Dr Joseph) , please consult and let them follow her during hospital stay
Etiology of syncope unclear, I would also recommend cardiology eval before surgery.
Boston Deluna MD
patient's pain is improved hemoglobin stable after unit of blood
will continue plan as listed above
Subjective / Interval History
-
48 yr old white female admitted last night for abdominal pain and an episode of syncope.She complains of increasing pain over the past 4 days and has been bleeding for 14 days but the bleeding is a normal flow for her, HX of menorrhagia and
fibroids. Pain has improved over night from a 15 to a 2 . Bleeding did initially slow down but feels it may be increasing now.
Is getting ready to go for CT scan
PMH- prothrombin gene mutation- hx of DVT and DE
Anemia
acid reflux
uterine fibroid and ovarian cyst
Objective Data
-
Lab Results:
10/29/23 06:03
10/29/23 06:03
Physical Exam
Vital Signs / I&O
Vitals
Temp Pulse Resp BP Pulse Ox
98.5 F 72 10 110/71 96
10/29/23 07:28 10/29/23 06:00 10/29/23 06:00 10/29/23 06:00 10/29/23 06:00
I&O
10/27/23 10/28/23 10/29/23 10/30/23
06:59 06:59 06:59 06:59
Intake Total 490 / 490
Balance 490 / 490
Physical Exam
VSS
Alert and oriented x3
Abdomen- soft nontender
extremities- no swelling or pain , leg pumps working
Respiratory: Clear
Cardiac: Regular Rhythm
Data Reviewed
-
Lab Data: Labs Reviewed
--- NOTE | 2023-10-29 09:45 | W.PN.HOSP.TC ---
Today's Communication/Plan
-
see bold
Assessment / Plan
Assessment / Plan
Gen: NAD, AAOx3.
Eyes: EOMI, PERRLA, no scleral icterus.
Neck: supple.
CV: RRR, +S1/S2, no m/r/g.
Resp: CTAB, no rales, wheezes, or rhonchi.
Abd: +BS, soft, NT to light palpation, ND
Skin: No rashes.
Neuro: CN 2-12 intact, non-focal.
Psych: Normal mood and affect.
CT A/P: Enlarged uterus with multiple uterine fibroids as described. There is a right adnexal mass which likely arises from the right ovary. Correlating with ultrasound evaluation, findings in the right ovary likely represents an endometrioma or
hemorrhagic cyst with smaller adjacent simple cyst/follicle. Further evaluation with MRI of the pelvis could be considered, but may be difficult because of patient's body habitus. Alternatively, follow-up ultrasound and/or CT could be performed to
assess for stability/interval change. No significant free pelvic fluid. Fatty infiltration of the liver.
Transvaginal U/S:
1. Complex right ovarian lesion, possibly a hemorrhagic cyst or endometrioma. Recommend follow-up pelvic ultrasound in 2-3 months.
2. Bulky fibroid uterus.
3. Nonvisualization of the left ovary.
Acute on chronic blood lass anemia due to menorrhagia and abdominal pain secondary to uterine fibroids:
-h/o ruptured ovarian cyst
-Patient's syncopal episode was likely due to acute blood loss anemia and vasovagal physiology from abdominal pain.
-Imaging above
-Hemoglobin stable s/p 1U pRBCs
-Holding MOISTURE MACHINE TENDER Xarelto, ibuprofen
-Senior Storage Engineer following, case discussed with Dr. Deluna. Pt will have IVC filter placement today followed by total abdominal hysterectomy on November 18, 2023. Patient reports she does not want uterine artery embolization at this time.
-Morphine for pain
-surprisingly Fe 49, TIBC 277, ferritin 43.6, % sat 17
Prothrombin gene mutation:
-with h/o PE/DVT
-Holding Xarelto
-IVC filter today
Other problems:
Morbid Obesity due to excess calories: encourage wt loss, affects all aspects of care
Asthma
Undiagnosed obstructive sleep apnea
GERD: Continue Protonix
FULL/SCDs
Total time spent on today's encounter was 52 minutes which included time spent in counseling the patient/family regarding diagnosis and treatment plan as listed above, goals of care, and symptom management. Case was discussed with nursing staff,
specialists, and care coordinators/case management. All labs and imaging personally reviewed by me. Remainder the time spent in detailed review of previous records, lab data, imaging, and other medical provider documentation.
Anticipated Discharge: 24 - 48 hours
Subjective/Interval History
-
Date of Service: October 29, 2023
Patient reports vaginal bleeding has decreased since admission. Still with abdominal pain.
Objective Data
-
Labs:
Laboratory Results
10/28/23 10/29/23
23:38 06:03
WBC 7.4
Hgb 8.7 L 9.1 L
Hct 27.9 L
Plt Count 288
Sodium 136
Potassium 4.4
Chloride 106
Carbon Dioxide 25
BUN 10
Creatinine 0.7
Glucose 90
Calcium 8.2 L
Total Bilirubin 0.4
AST 18
ALT 11
Alkaline Phosphatase 74
Vital Signs:
Vital Signs
Temp Pulse Resp BP Pulse Ox
98.5 F 72 10 110/71 96
10/29/23 07:28 10/29/23 06:00 10/29/23 06:00 10/29/23 06:00 10/29/23 06:00
I&O
10/28/23 10/29/23 10/30/23
06:59 06:59 06:59
Intake Total 490 / 490
Balance 490 / 490
--- NOTE | 2023-10-29 11:08 | CM ---
Patient seen at bedside with present. Patient stated that they live in a 4 floor condo with elevators on each floor. Patient home is in a senior community [place] Patient uses the [facility] in [place] and she uses Dr. Mosqueda as her PCP.
Patient anticipated further procedures/surgery and indicated that she was going to talk to the physician about options. CM will continue to follow for discharge planning needs.
Plan; home with VN pending functional assessments
--- NOTE | 2023-10-29 12:08 | TRANSFER ---
Report called to ALEYDA RN for room 432. Pt to be taken via W/C.
--- NOTE | 2023-10-29 12:34 | PTCARENOTE ---
Pt aware she will got to [facility] for IVC filter within the hour. at the bedside and informed as well. Safe environment maintained.
--- NOTE | 2023-10-29 13:04 | PTCARENOTE ---
Pt transferred to [facility] from ICU. Pt walked to bed from stretcher. Pt aaox3, pt ordered luch. VSS. Will continue to monitor
[2023-10-29] MEDS: TYLENOL 650 MG PO (18:29)
[2023-10-29] MEDS: BENADRYL 50 MG PO (20:18)
[2023-10-30] VITALS (24 sets, daily range): BP systolic 78–171; BP diastolic 66–110
[2023-10-30] MEDS: TYLENOL 650 MG PO (06:20)
[2023-10-30] MEDS: PROTONIX 40 MG PO (07:03)
[2023-10-30] MEDS: PROTONIX PO (07:45)
--- NOTE | 2023-10-30 07:52 | W.PN.GYNONC ---
Today's Communication
-
contacted IR to put on schedule for embolization
made NPO after breakfast for the procedure
Impression / Plan
-
48�year�old�woman�with�multiple�large�leiomyoma�creating�a�enlarged�uterus�causing�abnormal�bleeding,�endometrial biopsy�so�far�does�not�show�any�evidence�of�malignancy,�the�bleeding�is�exacerbated�because�patient�is�chronically�on�Xarelto�due
to�history�of�DVT�and�pulmonary�embolism�as�well�as�genetic�mutation�for�venous�thromboembolic�disease.�
Patient had filter placed and was unsure of if she wanted uterine artery embolization After discussion with Dr Deluna she has agreed to move forward with embolization
Subjective / Interval History
-
patient doing well bleeding last today slight neck pain from filter placement yesterday Did have leg swelling but better this morning no redness or pain.
Objective Data
-
Lab Results:
10/29/23 06:03
10/29/23 06:03
Physical Exam
Vital Signs / I&O
Vitals
Temp Pulse Resp BP Pulse Ox
98.2 F 87 16 108/59 97
10/29/23 22:57 10/29/23 22:57 10/29/23 22:57 10/29/23 22:57 10/29/23 22:57
I&O
10/28/23 10/29/23 10/30/23 10/31/23
06:59 06:59 06:59 06:59
Intake Total 490 / 490 600 / 600
Balance 490 / 490 600 / 600
Physical Exam
vss
alert and oriented x3
lungs clear
heart regular
legs- slight edema
Abdomen soft nontender
Data Reviewed
-
Diagnostic Radiology: Discussed with Physician and Discussed with Patient
--- NOTE | 2023-10-30 08:57 | PTCARENOTE ---
Patient found vaping in her room by PCT. RN educated patient about campus smoking policy. Patient also endorsed no BM since Friday, typically goes daily. Asked provider for stool softener and nicotine patch per patient's request. Awaiting orders.
--- NOTE | 2023-10-30 09:14 | W.PN.HOSP.TC ---
Today's Communication/Plan
-
see bold
Assessment / Plan
Assessment / Plan
Gen: NAD, AAOx3.
Eyes: EOMI, PERRLA, no scleral icterus.
Neck: supple.
CV: remains RRR, +S1/S2, no m/r/g.
Resp: remains CTAB, no rales, wheezes, or rhonchi.
Abd: remains +BS, soft, NT to light palpation, ND
Skin: No rashes.
Neuro: CN 2-12 intact, non-focal.
Psych: Normal mood and affect.
CT A/P: Enlarged uterus with multiple uterine fibroids as described. There is a right adnexal mass which likely arises from the right ovary. Correlating with ultrasound evaluation, findings in the right ovary likely represents an endometrioma or
hemorrhagic cyst with smaller adjacent simple cyst/follicle. Further evaluation with MRI of the pelvis could be considered, but may be difficult because of patient's body habitus. Alternatively, follow-up ultrasound and/or CT could be performed to
assess for stability/interval change. No significant free pelvic fluid. Fatty infiltration of the liver.
Transvaginal U/S:
1. Complex right ovarian lesion, possibly a hemorrhagic cyst or endometrioma. Recommend follow-up pelvic ultrasound in 2-3 months.
2. Bulky fibroid uterus.
3. Nonvisualization of the left ovary.
Acute on chronic blood lass anemia due to menorrhagia and abdominal pain secondary to uterine fibroids:
-h/o ruptured ovarian cyst
-Patient's syncopal episode was likely due to acute blood loss anemia and vasovagal physiology from abdominal pain.
-Imaging above
-Hemoglobin stable s/p 1U pRBCs
-Holding CRUSHER SETTER Xarelto, ibuprofen
-Parts And Service Manager following, case discussed with Dr. Deluna over the phone. Pt will have uterine artery embolization today with IR. Will likely be able to restart Xarelto tomorrow. She will need to stop her Xarelto November 14 (3 days prior to her planned total
abdominal hysterectomy on November 18, 2023).
-Morphine for pain
-surprisingly Fe 49, TIBC 277, ferritin 43.6, % sat 17
Prothrombin gene mutation:
-with h/o PE/DVT
-Holding Xarelto
-s/p IVC filter 10/29/23
Other problems:
Morbid Obesity due to excess calories: encourage wt loss, affects all aspects of care
Asthma
Undiagnosed obstructive sleep apnea
GERD: Continue Protonix
FULL/SCDs
Total time spent on today's encounter was 50 minutes which included time spent in counseling the patient/family regarding diagnosis and treatment plan as listed above, goals of care, and symptom management. Case was discussed with nursing staff,
specialists, and care coordinators/case management. All labs and imaging personally reviewed by me. Remainder the time spent in detailed review of previous records, lab data, imaging, and other medical provider documentation.
Anticipated Discharge: Within 24 hours
Subjective/Interval History
-
Date of Service: October 30, 2023
No new complaints.
Objective Data
-
Vital Signs:
Vital Signs
Temp Pulse Resp BP Pulse Ox
98.1 F 81 11 127/66 94
10/30/23 07:00 10/30/23 07:00 10/30/23 07:00 10/30/23 07:00 10/30/23 07:00
I&O
10/29/23 10/30/23 10/31/23
06:59 06:59 06:59
Intake Total 490 / 490 600 / 600
Balance 490 / 490 600 / 600
--- NOTE | 2023-10-30 11:44 | CM ---
Home when stable, no needs.
Plan; Home when stable, no needs.
[2023-10-30] MEDS: COMPAZINE 10 MG PO (14:03)
[2023-10-30] MEDS: ATIVAN 1 MG PO (14:03)
[2023-10-30] MEDS: OXYCONTIN (CONTROLLED RELEASE) 10 MG PO (14:03)
[2023-10-30] MEDS: ZOFRAN 8 MG PO (14:03)
[2023-10-30] MEDS: NSS 1000 IV ×2 (14:04→17:59)
[2023-10-30] MEDS: ANCEF 15 MG IV (14:36)
--- NOTE | 2023-10-30 16:42 | W.PN.UPDATE ---
Update Note
Progress Note Update
- UFE completed. Angio images showed significantly hypertrophied uterine arteries bilaterally with enlarged/myomatous uterus
- Used a combination of 500-700, 700-900 um embospheres and gelfoam to slow flow in both arteries. Despite more conservative embolization, patient still with significant post procedure pain. Orders placed for pain management
- Used a Mynx closure device at the groin. R leg flat for 3 hours.
- Vini updated.
[2023-10-30] MEDS: OFIRMEV 100 IV (16:49)
[2023-10-30] MEDS: APRESOLINE 10 MG IV (17:15)
--- NOTE | 2023-10-30 17:18 | PTCARENOTE ---
SEKOU RN-post procedure patient remains on 02 6L. BP rising post UFE. Dr. Chakraborty made aware to address blood pressure. Dr. Chakraborty eval patient bedside.
[2023-10-30] MEDS: DILAUDID 0.5 MG IV (17:22)
[2023-10-30] MEDS: ZOFRAN 4 MG IV (17:59)
[2023-10-30] MEDS: TORADOL 15 MG IV (21:13)
[2023-10-30] MEDS: BENADRYL PO (21:21)
[2023-10-31 01:15] VITALS: BP 149/77
[2023-10-31] MEDS: NSS 1000 IV ×2 (02:56→12:35)
[2023-10-31] MEDS: TORADOL 15 MG IV ×4 (02:56→20:56)
[2023-10-31 03:15] VITALS: BP 132/74
[2023-10-31] MEDS: DILAUDID 0.5 MG IV ×2 (06:35→11:38)
[2023-10-31 07:43] VITALS: BP 131/63
[2023-10-31 08:18] LABS: Hematocrit 28.2 % (37.0-47.0); Hemoglobin 8.9 g/dL (12.0-16.0); Mean Corp Hgb Conc. 31.6 g/dL (33.0-37.0); Mean Corpuscular Hgb 28.4 pg (27.0-31.0); Mean Corpuscular Volume 90.1 fL (81.0-99.0); Mean Platelet Volume 10.1 fL (7.4-10.4); Platelet Count 255 10^3/uL (130-400); Red Blood Cell Count 3.13 10^6/uL (4.20-5.40); Red Cell Dist. Width 18.2 % (11.5-14.5); White Blood Cell Count 9.3 10^3/uL (4.8-10.8)
[2023-10-31 08:46] LABS: Blood Urea Nitrogen 9 mg/dl (7-17); Calcium 7.8 mg/dl (8.4-10.2); Carbon Dioxide 26 mmol/L (22-30); Chloride 106 mmol/L (98-107); Estimated Creatinine Clearance > 125 ml/min; Glucose 97 mg/dl (70-99); Potassium 4.3 mmol/L (3.5-5.1); Sodium 135 mmol/L (135-145); eGFR > 60.00
[2023-10-31] MEDS: PROTONIX 40 MG PO (09:09)
[2023-10-31] MEDS: ZOFRAN 4 MG IV ×2 (09:14→16:13)
--- NOTE | 2023-10-31 10:23 | W.PN.GYNONC ---
Today's Communication
-
discussed with patient need for outpatient labs next week
and when she restarts her xarelto that she will need to stop the Friday before surgery
Impression / Plan
-
patient recovering from uterine artery embolization for control of vaginal bleeding and to help with blood counts until planned hysterectomy on 11/17.
planning for discharge per hospitalist
Subjective / Interval History
-
S/P uterine artery embolization on 10/29, still having some pain. Pain meds are helping and able to sleep. States vaginal bleeding is steel loader. still has nunes and not up and moving since procedure.Did have some nausea from the sedation.
Objective Data
-
Lab Results:
10/31/23 08:09
10/31/23 08:09
Physical Exam
Vital Signs / I&O
Vitals
Temp Pulse Resp BP Pulse Ox
98.1 F 84 16 131/63 97
10/31/23 07:43 10/31/23 07:43 10/31/23 07:43 10/31/23 07:43 10/31/23 07:43
I&O
10/29/23 10/30/23 10/31/23 11/01/23
06:59 06:59 06:59 06:59
Intake Total 490 / 490 600 / 600 360 / 360
Output Total 800 / 800
Balance 490 / 490 600 / 600 -440 / -440
Physical Exam
VSS
abdomen soft nontender
extremities no swelling
Respiratory: Clear
Cardiac: Regular Rhythm
Data Reviewed
-
Lab Data: Labs Reviewed and Discussed with Physician
--- NOTE | 2023-10-31 11:20 | W.PN.GENERIC ---
Assessment / Plan
-
48 yo female with DUB who underwent UAE in IR on 10/30/23
She reports improvement in pain. Continue tramadol as needed
She is still nauseous-Continue Zofran
Has abdominal cramping- May apply warm packs
I spent approximately 30 minutes in counseling and coordination of care with the patient, reviewing the history, physical examination and recent images as well as discuss the results and expected outcome of the procedure.
Physician Progress Note
Subjective
48 yo female with PMHx of menorrhagia, asthma, chronic anemia, prothrombin gene mutation, DVT and PE who underwent UAE yesterday in IR for DUB. She is complaining of abdominal cramping and nausea. She denies CP or SOB. She reports the pain is
beginning to improve slightly.
Objective
Vital Signs
Temp Pulse Resp BP Pulse Ox
98.1 F 84 16 131/63 97
10/31/23 07:43 10/31/23 07:43 10/31/23 07:43 10/31/23 07:43 10/31/23 07:43
Lab Results
10/31/23 08:09
10/31/23 08:09
This is an obese 48 yo female lying in bed. Color is good. Skin is warm and dry. Heart is regular. Lungs are CTA. Abdomen is soft and mildly tender with normoactive BS. Groin dressing CDI. No hematoma. Palpable inguinal and pedal pulses
[2023-10-31 11:43] VITALS: BP 144/87
--- NOTE | 2023-10-31 12:37 | W.PN.HOSP.TC ---
Today's Communication/Plan
-
plan for d/c tomorrow
Assessment / Plan
Assessment / Plan
Gen: NAD, AAOx3.
Eyes: EOMI, PERRLA, no scleral icterus.
Neck: supple.
CV: Continues to remain RRR, +S1/S2, no m/r/g.
Resp: Continues to CTAB, no rales, wheezes, or rhonchi.
Abd: Continues to +BS, soft, NT to light palpation, ND
Skin: No rashes.
Neuro: CN 2-12 intact, non-focal.
Psych: Normal mood and affect.
CT A/P: Enlarged uterus with multiple uterine fibroids as described. There is a right adnexal mass which likely arises from the right ovary. Correlating with ultrasound evaluation, findings in the right ovary likely represents an endometrioma or
hemorrhagic cyst with smaller adjacent simple cyst/follicle. Further evaluation with MRI of the pelvis could be considered, but may be difficult because of patient's body habitus. Alternatively, follow-up ultrasound and/or CT could be performed to
assess for stability/interval change. No significant free pelvic fluid. Fatty infiltration of the liver.
Transvaginal U/S:
1. Complex right ovarian lesion, possibly a hemorrhagic cyst or endometrioma. Recommend follow-up pelvic ultrasound in 2-3 months.
2. Bulky fibroid uterus.
3. Nonvisualization of the left ovary.
Acute on chronic blood lass anemia due to menorrhagia and abdominal pain secondary to uterine fibroids:
-h/o ruptured ovarian cyst
-Patient's syncopal episode was likely due to acute blood loss anemia and vasovagal physiology from abdominal pain.
-Imaging above
-Hemoglobin stable s/p 1U pRBCs
-Holding DEPARTMENT STORE SALESPERSON Xarelto, ibuprofen
-s/p uterine artery embolization on 10/30/23. Restart Xarelto as per discussion with [employer]. She will need to stop her Xarelto November 14, 2023 (4 days prior to her planned total abdominal hysterectomy on November 18, 2023).
-Morphine for pain
-surprisingly Fe 49, TIBC 277, ferritin 43.6, % sat 17
Prothrombin gene mutation:
-with h/o PE/DVT
-Holding Xarelto
-s/p IVC filter 10/29/23
Other problems:
Morbid Obesity due to excess calories: encourage wt loss, affects all aspects of care
Asthma
Undiagnosed obstructive sleep apnea
GERD: Continue Protonix
d/c nunes
FULL/SCDs
Anticipated Discharge: Within 24 hours
Subjective/Interval History
-
Date of Service: October 31, 2023
Reports abdominal pain. Vaginal bleeding has decreased.
Objective Data
-
Labs:
Laboratory Results
10/31/23
08:09
WBC 9.3
Hgb 8.9 L
Hct 28.2 L
Plt Count 255
Sodium 135
Potassium 4.3
Chloride 106
Carbon Dioxide 26
BUN 9
Creatinine 0.7
Glucose 97
Calcium 7.8 L
Vital Signs:
Vital Signs
Temp Pulse Resp BP Pulse Ox
98.2 F 91 20 144/87 96
10/31/23 11:43 10/31/23 11:43 10/31/23 11:43 10/31/23 11:43 10/31/23 11:43
I&O
10/30/23 10/31/23 11/01/23
06:59 06:59 06:59
Intake Total 600 / 600 360 / 360
Output Total 800 / 800
Balance 600 / 600 -440 / -440
--- NOTE | 2023-10-31 13:47 | CM ---
Chart reviewed and patient is for discharge to home possibly tomorrow. Per patient she is currently off oxygen.
Plan; Home with family when stable.
[2023-10-31] MEDS: ROXICODONE 5 MG PO (13:56)
[2023-10-31 15:39] VITALS: BP 117/50
[2023-10-31] MEDS: XARELTO 20 MG PO (18:08)
[2023-10-31] MEDS: BENADRYL 50 MG PO (21:04)
[2023-10-31] MEDS: NSS IV (22:45)
[2023-10-31 23:00] VITALS: BP 147/79
[2023-11-01] MEDS: DILAUDID 0.5 MG IV (02:23)
[2023-11-01] MEDS: TORADOL IV (03:00)
[2023-11-01 07:00] VITALS: BP 164/95
[2023-11-01] MEDS: TORADOL 15 MG IV (08:07)
[2023-11-01] MEDS: PROTONIX 40 MG PO (08:08)
--- NOTE | 2023-11-01 11:14 | W.PN.HOSP.TC ---
Today's Communication/Plan
-
d/c
Assessment / Plan
Assessment / Plan
Gen: remains NAD, AAOx3.
Eyes: remains EOMI, PERRLA, no scleral icterus.
Neck: supple.
CV: RRR, +S1/S2, no m/r/g.
Resp: CTAB, no rales, wheezes, or rhonchi.
Abd: +BS, soft, NT to light palpation, ND
Skin: No rashes.
Neuro: CN 2-12 intact, non-focal.
Psych: Normal mood and affect.
CT A/P: Enlarged uterus with multiple uterine fibroids as described. There is a right adnexal mass which likely arises from the right ovary. Correlating with ultrasound evaluation, findings in the right ovary likely represents an endometrioma or
hemorrhagic cyst with smaller adjacent simple cyst/follicle. Further evaluation with MRI of the pelvis could be considered, but may be difficult because of patient's body habitus. Alternatively, follow-up ultrasound and/or CT could be performed to
assess for stability/interval change. No significant free pelvic fluid. Fatty infiltration of the liver.
Transvaginal U/S:
1. Complex right ovarian lesion, possibly a hemorrhagic cyst or endometrioma. Recommend follow-up pelvic ultrasound in 2-3 months.
2. Bulky fibroid uterus.
3. Nonvisualization of the left ovary.
Acute on chronic blood lass anemia due to menorrhagia and abdominal pain secondary to uterine fibroids:
-h/o ruptured ovarian cyst
-Patient's syncopal episode was likely due to acute blood loss anemia and vasovagal physiology from abdominal pain.
-Imaging above
-Hemoglobin stable s/p 1U pRBCs
-Holding ELECTRICAL ENGINEERING TECHNOLOGIST Xarelto, ibuprofen
-s/p uterine artery embolization on 10/30/23.
-Xarelto restarted as per discussion with [employer]. She will need to stop her Xarelto November 14, 2023 (4 days prior to her planned total abdominal hysterectomy on November 18, 2023).
-Morphine for pain
-surprisingly Fe 49, TIBC 277, ferritin 43.6, % sat 17
Prothrombin gene mutation:
-with h/o PE/DVT
-Holding Xarelto
-s/p IVC filter 10/29/23
Other problems:
Morbid Obesity due to excess calories: encourage wt loss, affects all aspects of care
Asthma
Undiagnosed obstructive sleep apnea
GERD: Continue Protonix
FULL/Xarelto
Medically stable for d/c.
Total time spent on d/c = 31 min. This included today's physical exam, progress note, review of laboratory and diagnostic data, preparation of discharge documents and prescriptions, and discussions about the pt's hospital course and discharge plan
with the patient and other medical record assistant involved in the patient's care.
Anticipated Discharge: Today
Subjective/Interval History
-
Date of Service: November 01, 2023
Heavy vaginal bleeding yesterday evening. Still with abdominal pain.
Objective Data
-
Vital Signs:
Vital Signs
Temp Pulse Resp BP Pulse Ox
99.1 F 99 15 164/95 95
11/01/23 07:00 11/01/23 07:00 11/01/23 07:00 11/01/23 07:00 11/01/23 07:00
I&O
10/31/23 11/01/23 11/02/23
06:59 06:59 06:59
Intake Total 360 / 360 960 / 960 300 / 300
Output Total 800 / 800 300 / 300
Balance -440 / -440 660 / 660 300 / 300
[2023-11-01] MEDS: ROXICODONE 5 MG PO (12:33)
--- NOTE | 2023-11-01 14:23 | W.DCSUMMARY ---
Discharge Summary
Discharge Data
Date of Admission: 10/28/23
Date of Discharge: 11/01/23
-
Pending Results: No
Hospital Course
Primary diagnoses:
Acute on chronic blood lass anemia due to menorrhagia and abdominal pain secondary to uterine fibroids
Syncopal episode likely due to acute blood loss anemia and vasovagal physiology from abdominal pain
Secondary diagnoses:
Prothrombin gene mutation with history of deep vein thrombosis and pulmonary embolism
Morbid Obesity due to excess calories
Asthma
Undiagnosed obstructive sleep apnea
Gastroesophageal reflux disease
Consultants:
Gynecology
Interventional radiology
Imaging:
CT A/P: Enlarged uterus with multiple uterine fibroids as described. There is a right adnexal mass which likely arises from the right ovary. Correlating with ultrasound evaluation, findings in the right ovary likely represents an endometrioma or
hemorrhagic cyst with smaller adjacent simple cyst/follicle. Further evaluation with MRI of the pelvis could be considered, but may be difficult because of patient's body habitus. Alternatively, follow-up ultrasound and/or CT could be performed to
assess for stability/interval change. No significant free pelvic fluid. Fatty infiltration of the liver.
Transvaginal U/S:
1. Complex right ovarian lesion, possibly a hemorrhagic cyst or endometrioma. Recommend follow-up pelvic ultrasound in 2-3 months.
2. Bulky fibroid uterus.
3. Nonvisualization of the left ovary.
Hospital course: 48-year-old female who presented with chief complaint of vaginal bleeding as outlined in the H&P done on admission. The patient had acute on chronic blood lass anemia due to menorrhagia and abdominal pain secondary to uterine
fibroids. Imaging above. The patient has reported syncopal episode was likely due to acute blood loss anemia and vasovagal physiology from abdominal pain. She received 1 unit of packed red blood cells. Her ibuprofen and Xarelto were held. She
underwent IVC filter placement and uterine artery embolization while hospitalized. Her Xarelto was restarted. She will need to stop her Xarelto November 14, 2023 (4 days prior to her planned total abdominal hysterectomy on November 18, 2023).
Discharge Plan
-
Patient Disposition: Home (Routine Discharge)
Discharge Diagnosis/Procedures: Acute on chronic blood lass anemia due to menorrhagia and abdominal pain secondary to uterine fibroids, s/p uterine artery embolization on 10/30/23, s/p inferior vena cava filter 10/29/23
Condition: Good
Diet: No restrictions
Activity: As tolerated
Driving Restrictions: As prior to admission
Blood Work: BMP and CBC in 3 days, script from PCP
Referrals:
Jorje Mosqueda MD [Family Provider] - in less than 1 week
Prescriptions:
Continued
pantoprazole 40 mg Tablet,Delayed Release (Dr/Ec)
40 mg PO DAILY
diphenhydramine HCl [Benadryl] 25 mg Capsule
50 mg PO HS
Xarelto 20 mg Tablet
20 mg PO QPM
tramadol 50 mg Tablet
50 mg PO BIDPRN PRN (Reason: severe pain)
Discontinued
ibuprofen [Advil] 200 mg Tablet
200 mg PO Q6HPRN PRN (Reason: mild pain)
Discharge Orders:
Discharge Patient (As Directed); Ordered 11/01/23
Ordered By: Euloigo Chakraborty
Discharge Date and Time
Discharge Date/Time: 11/01/23 13:24
Print Language: GUINEAN
== END 2023-11-01 13:24 | disposition home or self-care (01) | DRG 749 ==
LOC: 4 WEST ACU 17:38
PROVIDERS: Radiology Diagnostic Radiology; Radiology Vascular & Interventional Radiology; ADMITTING PHYSICIAN Hospitalist; ATTENDING PHYSICIAN Internal Medicine; CONSULT PHYSICIAN Obstetrics & Gynecology Gynecologic Oncology; EMERGENCY PHYSICIAN Emergency Medicine; FAMILY PHYSICIAN Family Medicine
PROC: 30233N1 Transfusion of Nonautologous Red Blood Cells into Peripheral Vein, Percutaneous Approach (ICD-10-PCS; 2023-10-28)
PROC: 06H03DZ Insertion of Intraluminal Device into Inferior Vena Cava, Percutaneous Approach (ICD-10-PCS; 2023-10-29)
PROC: 04LE3ZT Occlusion of Right Uterine Artery, Percutaneous Approach (ICD-10-PCS; 2023-10-30)
PROC: 04LF3DU Occlusion of Left Uterine Artery with Intraluminal Device, Percutaneous Approach (ICD-10-PCS; 2023-10-30)
DX: D25.9 Leiomyoma of uterus, unspecified (principal); D62 Acute posthemorrhagic anemia; D68.52 Prothrombin gene mutation; D68.32 Hemorrhagic disorder due to extrinsic circulating anticoagulants; Z68.43 Body mass index [BMI] 50.0-59.9, adult; G89.29 Other chronic pain; K21.9 Gastro-esophageal reflux disease without esophagitis; E66.01 Morbid (severe) obesity due to excess calories; N92.0 Excessive and frequent menstruation with regular cycle; Z79.01 Long term (current) use of anticoagulants
CPT/HCPCS: 36247; 37191; 37243; 74174; 75726; 76830; 76856; 76937; 80048; 80053; 82728; 83540; 83550; 85018; 85025; 85027; 85610; 85730; 86850; 86900; 86901; 86920; 96361; 96374; 96375; 99152; 99153; 99285; C1769; C1880; C1887; P9016; Q9967

== ENCOUNTER 2023-11-03 08:52 | Emergency (ER) | payer OTHER, SELFPAY ==
[2023-11-03 08:58] VITALS: BP 116/72
[2023-11-03 09:00] VITALS: BP 105/63
[2023-11-03 09:06] VITALS: BP 105/63
[2023-11-03 09:08] VITALS: BMI 51.4
[2023-11-03 09:42] LABS: Hematocrit 31.9 % (37.0-47.0); Hemoglobin 10.2 g/dL (12.0-16.0); Mean Corpuscular Hgb 27.9 pg (27.0-31.0); Mean Corpuscular Volume 87.4 fL (81.0-99.0); Mean Platelet Volume 10.9 fL (7.4-10.4); Platelet Count 287 10^3/uL (130-400); Red Blood Cell Count 3.65 10^6/uL (4.20-5.40); White Blood Cell Count 14.7 10^3/uL (4.8-10.8)
[2023-11-03] MEDS: TYLENOL 1000 MG PO (09:50)
[2023-11-03 09:53] LABS: ALT (SGPT) < 10 U/L (0-35); AST (SGOT) 19 U/L (14-36); Albumin 3.5 g/dl (3.5-5.0); Alkaline Phosphatase 91 U/L (38-126); Blood Urea Nitrogen 7 mg/dl (7-17); Calcium 8.7 mg/dl (8.4-10.2); Carbon Dioxide 26 mmol/L (22-30); Chloride 100 mmol/L (98-107); Estimated Creatinine Clearance > 125 ml/min; Glucose 100 mg/dl (70-99); Potassium 4.2 mmol/L (3.5-5.1); Sodium 134 mmol/L (135-145); Total Bilirubin 0.9 mg/dl (0.2-1.3); Total Protein 6.4 g/dl (6.3-8.2); eGFR > 60.00
--- NOTE | 2023-11-03 09:56 | ED.GENMED ---
History of Present Illness
General
Chief Complaint: Abdominal Pain
Time Seen by Provider: 11/03/23 09:36
Travel History
Have you had any contact with someone who has COVID-19?: No
Do you have any symptoms of coronavirus? Fever > 100 degrees, chills, cough, shortness of breath, sore throat, loss of taste or smell, muscle aches, or headache?: No
History of Present Illness
History of Present Illness:
48-year-old female presents emerged part complaining diffuse abdominal pain for the past 1 to 2 days. She has nausea constipation.
Past History
Past History
ED Past Medical History: Asthma and Other (Prothrombin gene mutation (clotting disorder), uterine fibroids, pulmonary embolism, DVT, obstructive sleep apnea)
ED Past Surgical History: Other (wisdom teeth, cataracts)
Social History
Tobacco: Non-smoker
Alcohol: None
Drug: None
Personal:
Phy Exam
Physical Exam
Physical Exam:
Physical Exam
General: no apparent distress, not acutely ill
Neck: supple. no meningeal signs. normal posterior pharynx
Heart: s1/s2 regular rate and rhythm, no murmur. equal radial
pulses.
HEENT: Pupils equal round reactive to light, EOMI
Lungs: no acute respiratory distress. clear bilaterally
Abdomen: normal bowel sounds. mild left side tenderness, no rebound or guarding. no CVAT
Neuro: alert and oriented. no focal neurological deficits cranial nerves II through XII intact
Skin: no rash
Psychiatric: well kept. interactive and cooperative
Extremities: no edema. no calf tenderness. negative homans. good distal pulses
Course
Orders/Labs/Results
Orders:
Orders
11/03/23 09:30
Type+Screen Urgent
CMP [Comprehensive Metabolic Panel] Urgent
Complete Blood Count/No Diff Urgent
11/03/23 09:47
Acetaminophen [Tylenol] 1,000 mg .ROUTE .STK-MED ONE
11/03/23 09:50
Acetaminophen [Tylenol] 1,000 mg PO NOW STA
11/03/23 09:55
CT Abd/pelvis W Iv Cont Urgent
Comment:
Reason For Exam: left side abdominal pain
11/03/23 11:38
Magnesium Citrate [Citroma] 300 ml PO ONCE ONE
Abnormal Lab Results
11/03/23
09:30
WBC 14.7 H 10^3/uL
(4.8-10.8)
RBC 3.65 L 10^6/uL
(4.20-5.40)
Hgb 10.2 L g/dL
(12.0-16.0)
Hct 31.9 L %
(37.0-47.0)
MCHC 32.0 L g/dL
(33.0-37.0)
RDW 17.0 H %
(11.5-14.5)
MPV 10.9 H fL
(7.4-10.4)
Sodium 134 L mmol/L
(135-145)
Glucose 100 H mg/dl
(70-99)
11/03/23 09:30
11/03/23 09:30
Vital Signs
Initial and Last Documented VS:
Initial Vital Signs
BP
116/72
11/03/23 08:58
Last Documented Vital Signs
Temp Pulse Resp BP Pulse Ox
98.3 F 78 16 112/65 91
11/03/23 09:06 11/03/23 11:30 11/03/23 11:15 11/03/23 10:00 11/03/23 11:30
MDM/Problems Addressed
Differential Diagnosis Includes:
bowel obstruction, constipation
MDM/Problems Addressed:
48 yo female with abdominal pain, constipation. VSS. No signs of obstruction.
Chronic conditions affecting care: Previous abdomnial surgery
Acute Exacerbation and/or Progression of Chronic Illness: Previous abdomnial surgery
*Radiology
Radiology exam reviewed: radiology read reviewed
*Pulse Oximetry
Patient hypoxic: no
*EKG
Interpreted by ED Provider?: NA
*Hardboard Panel Printer Interpretation
Rate: Hardboard Panel Printer- N/A
*Critical Care Note
Total Time (30-74mins, 75-104mins- exclusive of procedures): Not Applicable
Patient Management
Social determinants of health affecting care: Living situation
Escalation/DeEscalation of care consider admission/obs:
admit not indicated
ED Attending Note
-
Portions of this chart may have been created with voice recognition software.� Occasional wrong word or��sound alike� substitutions may have occurred due to the inherent limitations of voice recognition software.
Discharge Plan
Departure
Patient Disposition: Home (Routine Discharge)
Date of Disposition: 11/03/23
Time of Disposition: 11:46
Patient with high blood pressure during this ER visit?: No
Condition: Good
Discharge Problem:
Abdominal pain, Constipation
Instructions: Constipation, Adult (DC), Abdominal Pain
Prescriptions:
No Action
pantoprazole 40 mg Tablet,Delayed Release (Dr/Ec)
40 mg PO DAILY
diphenhydramine HCl [Benadryl] 25 mg Capsule
50 mg PO HS
Xarelto 20 mg Tablet
20 mg PO QPM
tramadol 50 mg Tablet
50 mg PO BIDPRN PRN (Reason: severe pain)
Referrals:
Boston Deluna MD [Active] - Call in 1-3 days for appt
Jorje Mosqueda MD [Family Provider] - Call in 1-3 days for appt
Interventions
Interventions:
*Risk Screen - Suicide Last Done: 11/03/23 09:36
*General Assessment Last Done: 11/03/23 09:08
*Neglect/Abuse Screening Last Done: 11/03/23 09:36
*ED COVID-19 Vaccine History Last Done: 11/03/23 09:08
KC-Uysgwd-Crepjsnvmv Assessment Last Done: 11/03/23 09:42
ED-Skin Assessment Last Done: 11/03/23 09:35
Discharge Date and Time
Print Language: BULGARIAN
[2023-11-03 10:00] VITALS: BP 112/65
[2023-11-03] MEDS: CITROMA 300 ML PO (11:42)
== END 2023-11-03 12:04 | disposition home or self-care (01) ==
LOC: EMR 08:52
PROVIDERS: EMERGENCY PHYSICIAN Emergency Medicine; FAMILY PHYSICIAN Family Medicine
DX: R10.84 Generalized abdominal pain (principal); R11.0 Nausea; K59.00 Constipation, unspecified; J45.909 Unspecified asthma, uncomplicated; D68.52 Prothrombin gene mutation; G47.33 Obstructive sleep apnea (adult) (pediatric); D25.9 Leiomyoma of uterus, unspecified; Z86.718 Personal history of other venous thrombosis and embolism; Z86.711 Personal history of pulmonary embolism; Z88.2 Allergy status to sulfonamides
CPT/HCPCS: 99285; 74177; 80053; 85027; 86850; 86900; 86901; Q9967

== ENCOUNTER 2023-12-09 06:02 | Day surgery (SDC) | payer OTHER, SELFPAY ==
[2023-12-09] VITALS (23 sets, daily range): BP systolic 116–163; BP diastolic 79–110; BMI 50.9
[2023-12-09] MEDS: HEPARIN 5000 UNITS SC (06:48)
[2023-12-09] MEDS: CELEBREX 200 MG PO (06:48)
[2023-12-09] MEDS: TYLENOL 1000 MG PO (06:48)
[2023-12-09] MEDS: NEURONTIN 300 MG PO (06:48)
[2023-12-09] MEDS: NORMOSOL-R 1000 IV (06:49)
--- NOTE | 2023-12-09 10:14 | OR.RPT ---
Operative Report
Operative Report
Date of surgery: December 09, 2023
Preoperative diagnosis: Symptomatic enlarging leiomyoma, right lower quadrant mass, abnormal uterine bleeding, symptomatic anemia
Postoperative diagnosis enlarged uterus with multiple leiomyoma, normal left tube and ovary, right ovary with 8 cm endometrioma
Procedure: Robotic assisted total laparoscopic hysterectomy, bilateral salpingo-oophorectomy uterine weight greater than 250 g, mini laparotomy for extraction of specimen [id number], TAP Block 33011
Surgeon:Boston Deluna MD
Assist: Yomaira Kohler PA-C, PAULINO Nguyễn
Anesthesia: General endotracheal intubation
Estimated blood loss 100 cc
Complication: None
Procedure in detail: This patient was taken to the operating room for definitive management of enlarging symptomatic uterine leiomyoma. The patient has multiple comorbidities including total episodes of venous thromboembolic disease and is
chronically on anticoagulation. Prior to the surgery she underwent optimization of her hemoglobin including blood transfusion and iron infusion and has IVC filter retrievable type placed. She was placed in supine position, general anesthesia was
administered she was intubated without any difficulty. Arms were wrapped in foam across multiple joints and placed along the patient's sides. Legs were placed in lithotomy position using bariatric type yellowfin stirrups. The patient was prepped
on the abdomen perineum and vagina. Timeout procedure was carried out and she received 3 g of Ancef and 500 mg of Flagyl. Stone catheter was inserted under sterile conditions and the bladder. Cervix was grasped on the anterior lip with
single-tooth tenaculum, the uterine cavity sounded to 12 cm, cervical canal was dilated and uterine manipulator fur dry cleaner hand type with 3.0 ALIZA ring was placed around the cervix and vaginal cuff occluder was insufflated. We turned our attention
abdominally and placed a Veress needle in the umbilicus and created pneumoperitoneum up to pressure of 15 mmHg. Next 8 mm robotic port was placed approximately 25 cm cephalad to symphysis pubis into the peritoneal cavity, 8 mm robotic ports were
placed in the right upper quadrant left upper quadrant and left lateral abdomen. 12 mm air seal trocar was introduced in the right lower quadrant.
TAP block was performed in right and left upper abdomen under direct visualization using a combination of 30 cc 0.5% ropivacaine and 30 cc sterile saline as well as injections in the right and left lateral abdomen.
We inspected the upper abdomen and note liver spleen stomach right and left diaphragms to be normal. Inspection of the abdomen reveals omentum with hemosiderin deposits suggestive of endometriosis, omentum is unremarkable right and left paracolic
gutters are normal ascending transverse and descending colon are normal appendix is normal. The uterus is enlarged with the bilobed mild leiomyoma and additional leiomyoma occupying the posterior cul-de-sac. In the right posterior cul-de-sac there
is a 8 cm endometrioma that is adherent to the posterior aspect of the uterus and some of the pelvic sidewall. The left tube and ovary is unremarkable. Robotic system was docked
Right and left round ligaments were sealed and divided. Anterior and posterior leaves of the broad ligament were dissected open, pararectal and paravesical spaces were developed. The course of the ureter was identified bilaterally and an avascular
plane was developed between infundibulopelvic ligaments and ureters. Both IP ligaments were sealed 3 times with bipolar cautery and divided. The left tube and ovary was left attached to the main uterine specimen we detached the right tube and
ovary from the posterior cul-de-sac, the cyst did rupture and dark chocolate colored fluid exited into the posterior cul-de-sac which was removed. We used a vessel sealer to seal across utero-ovarian ligament and placed the specimen of right tube
and ovary in a separate bag. I used a 30 degree camera down to help develop the bladder flap and this was taken down to the level of the cervix and vesicouterine space was developed. We were able to identify uterine vessels on both right and left
sides which were sealed with vessel sealer, we then made a circumferential incision over the ALIZA ring until the specimen was completely detached. The specimen was elevated and from the uterine manipulator and placed in a large 15 mm
endoscopic bag for future retrieval. The vaginal cuff was closed at both vaginal apices using [id number] sutures of 0 Vicryl incorporating uterosacral ligaments for support. I used V-Loc suture x 2 to close the vaginal cuff essentially in 2
layers. We paid a particular attention to all the vascular pedicles and ensured excellent hemostasis throughout. Next the 12 mm port in the right lower quadrant was removed and Nate Alexander was used to reapproximate the fascia with 0
Vicryl suture and this was tied down. A 10 cm skin incision was made approximately 3 fingerbreadths above the symphysis pubis in a transverse fashion and taken down through skin subcutaneous tissue and fascia and eventually the rectus
muscles and entering the peritoneal cavity. Both specimens including uterus cervix and left tube and ovary as well as right tube and ovary were removed and submitted to pathology. Good hemostasis was present here, STRATAFIX suture was used to
close right and left half of the incision and a 2 layer closure. Subcutaneous tissue was irrigated and closed with a running suture of 2-0 Monocryl. At this point all robotic ports were taken out and all skin incisions were closed in a
subcuticular fashion with 4-0 Monocryl. We injected total of 20 cc 0.5% bupivacaine superficially in all incisions.
Counts of laps instruments and needle was correct x 2. I was present and scrubbed for entire procedure as dictated above.
Disposition: To PACU, awake and extubated
[2023-12-09] MEDS: ZOFRAN 4 MG IV (12:34)
[2023-12-09] MEDS: DILAUDID 0.25 MG IV (13:36)
[2023-12-09] MEDS: TYLENOL 650 MG PO (13:48)
[2023-12-09] MEDS: TORADOL 15 MG IV (13:54)
== END 2023-12-09 16:26 | disposition home or self-care (01) ==
LOC: SDS 06:02
PROVIDERS: ATTENDING PHYSICIAN Obstetrics & Gynecology Gynecologic Oncology
DX: D25.9 Leiomyoma of uterus, unspecified (principal); N80.121 Deep endometriosis of right ovary; Z79.01 Long term (current) use of anticoagulants; D64.9 Anemia, unspecified; N93.9 Abnormal uterine and vaginal bleeding, unspecified
CPT/HCPCS: 58573; 88305; 88307; 36415; 86850; 86900; 86901